=== PATIENT | female | born 1965 | race Caucasian/White ===

== ENCOUNTER 2016-10-01 11:55 | Emergency (ER) | payer OTHER ==
--- NOTE | 2016-10-01 13:18 | RAD ---
INDICATION: Head injury. COMPARISON: Comparison is made with a prior CT of the brain from February 03, 2010. TECHNIQUE: Contiguous axial sections of the brain were obtained from the skull base to the vertex without contrast. FINDINGS: The ventricles, cisterns and sulci are within normal limits. No significant focal abnormality or mass effect is seen. There is no evidence for hemorrhage. No significant focal osseous abnormality is seen. The visualized portion of the paranasal sinuses and mastoid air cells appear clear. IMPRESSION: NO EVIDENCE FOR ACUTE INTRACRANIAL ABNORMALITY.
[2016-10-01] MEDS ORDERED: Acetaminophen TAB* 325 MG PO ONE (13:24)
--- NOTE | 2016-10-01 13:37 | ED ---
Head Injury - HPI Summary HPI Summary: Patient is an otherwise healthy 51yo F who presents to ED 4 days after right sided temporal head injury. She states she stood up and hit the side of the head on a ceiling beam and had LOC. She notes to some memory loss, confusion and feeling "foggy" after the incident. The "foggy" feeling has continued and the pain in the right temporal region remains and she is concerned over a skull fracture and/or brain bleed. She denies previous concussions or head injuries. She took an Ibuprofen immediately after the incident which improved the head pain and headache. Since then, she has been taking Tylenol for relief. She denies N/V or other symptoms. She denies medication use, alcohol or drug use. - History Of Current Complaint Chief Complaint: EDHeadInjury Stated Complaint: HIT HEAD/SYNCOPE Time Seen by Provider: 10/01/16 12:07 Hx Obtained From: Patient Hx Last Menstrual Period: now? Mechanism Of Injury: Blunt Trauma Onset/Duration: Started Days Ago Onset of Pain: Immediate Severity Currently: Moderate Severity Initially: Moderate Pain Intensity: 3 Pain Scale Used: 0-10 Numeric Location of Head Injury: Temporal Location: Discrete At: - temporal region on rt side Alleviating Factor(s): Rest, Ice Associated Signs And Symptoms: LOC (Time In Secs./Mins/Hrs) - seconds to minutes - unknown, Confusion, Memory Loss, Headache - Risk Factors SDH Risk Factor: Recent Trauma - Allergies/Home Medications Allergies/Adverse Reactions: Allergies Allergy/AdvReac Type Severity Reaction Status Date / Time Meperidine [From Demerol HCl] Allergy Swelling Verified 10/01/16 11:59 Morphine Allergy SEIZURE Verified 10/01/16 11:59 PMH/Surg Hx/FS Hx/Imm Hx Previously Healthy: Yes Endocrine/Hematology History: Denies: Hx Diabetes, Hx Thyroid Disease Cardiovascular History: Reports: Other Cardiovascular Problems/Disorders - CHEST SURGERY-91-[id number] LEFT, NO PROBLEMS SINCE Denies: Hx Hypertension Respiratory History: Denies: Hx Asthma, Hx Chronic Obstructive Pulmonary Disease (COPD) GI History: Denies: Hx Ulcer - Cancer History Hx Chemotherapy: No Hx Radiation Therapy: No - Surgical History Surgery Procedure, Year, and Place: lung surgery early - pneumo - Immunization History Hx Pertussis Vaccination: No Immunizations Up to Date: No Infectious Disease History: No Infectious Disease History: Denies: Hx Hepatitis, Hx Human Immunodeficiency Virus (HIV), Traveled Outside the [place] in Last 30 Days - Social History Occupation: Employed Full-time Lives: With Family Alcohol Use: None Hx Substance Use: No Substance Use Type: Reports: None Hx Tobacco Use: No Smoking Status (MU): Never Smoked Tobacco Do You Chew or Dip Tobacco: No Have You Chewed or Dipped Tobacco in the LAST YEAR: No Review of Systems Positive: Other - right sided head pain Eyes: Negative Cardiovascular: Negative Respiratory: Negative Gastrointestinal: Negative Positive: no symptoms reported, see HPI Musculoskeletal: Negative Positive: Headache Psychological: Normal All Other Systems Reviewed And Are Negative: Yes Physical Exam Triage Information Reviewed: Yes Vital Signs On Initial Exam: Initial Vitals Temp 98.3 F 10/01/16 11:56 Vital Signs Reviewed: Yes Appearance: Positive: Well-Appearing, No Pain Distress, Well-Nourished Skin: Positive: Warm, Skin Color Reflects Adequate Perfusion Head/Face: Positive: Other - small hematom over right parietal area without ecchymosis or lesion Eyes: Positive: EOMI, NICOLLE, Conjunctiva Clear Neck: Positive: Supple, No Lymphadenopathy Respiratory/Lung Sounds: Positive: Clear to Auscultation, Breath Sounds Present Cardiovascular: Positive: Normal, RRR, Pulses are Symmetrical in both Upper and Lower Extremities Musculoskeletal: Positive: Normal, Strength/ROM Intact Neurological: Positive: Normal, Sensory/Motor Intact, Alert, Oriented to Person Place, Time, CN Intact II-III, Reflexes Intact, Speech Normal Psychiatric: Positive: Normal AVPU Assessment: Alert - Zainab Coma Scale Coma Scale Total: 15 Diagnostics - Vital Signs Vital Signs Temp Pulse Resp BP Pulse Ox 10/01/16 11:57 98.3 F 88 17 129/98 100 10/01/16 11:56 98.3 F - Laboratory Lab Statement: Any lab studies that have been ordered have been reviewed, and results considered in the medical decision making process. Head Injury Course/Dx Course Of Treatment: Patient sent to CT. CT brain negative for acute findings. Recommended brain rest with minimal reading, writing, TV, computer, etc. Patient will follow up with PCP. Paient is otherwise healthy and takes no medications. There is no concern at this point for a brain bleed, but will treat for concussive symptoms. Patient is OK and ready for DC. 650mg Tylenol given prior to DC. - Diagnoses Differential Diagnosis/HQI/PQRI: Concussion With LOC, Concussion Without LOC, Hematoma Provider Diagnoses: Concussion Discharge - Discharge Plan Condition: Stable Disposition: HOME Patient Education Materials: Concussion (ED), Post Concussion Syndrome (ED) Referrals: Jesús Bernal MD [Primary Care Provider] - Additional Instructions: Follow up with your PCP as needed. Brain rest for at least 4-6 days, if you are still feeling headaches, pains or confusion, prolong the brain rest and go see your PCP right away. Tylenol 650mg three times daily for pain and discomfort. Slowly work your way back into staring at computers, writing, reading, etc.
[2016-10-01 13:39] VITALS: BP 116/74
== END 2016-10-01 13:37 | disposition home or self-care (01) ==
LOC: ED 11:55
DX: S06.0X1A Concussion with loss of consciousness of 30 minutes or less, initial encounter (principal); W22.8XXA Striking against or struck by other objects, initial encounter; Y93.9 Activity, unspecified; Y92.9 Unspecified place or not applicable; R41.0 Disorientation, unspecified
CPT/HCPCS: 70450; 99282; A9270-GY

== ENCOUNTER 2017-10-31 21:02 | Emergency (ER) | payer OTHER ==
[2017-10-31 21:18] VITALS: BP 144/76
== END 2017-10-31 22:18 | disposition left against medical advice (07) ==
LOC: ED 21:02
DX: T14.8XXA Other injury of unspecified body region, initial encounter (principal); W57.XXXA Bitten or stung by nonvenomous insect and other nonvenomous arthropods, initial encounter; Z53.21 Procedure and treatment not carried out due to patient leaving prior to being seen by health care provider

== ENCOUNTER 2017-11-02 12:18 | Emergency (ER) | payer OTHER ==
[2017-11-02 13:28] VITALS: BP 119/79
--- NOTE | 2017-11-02 13:35 | ED ---
Skin Complaint - HPI Summary HPI Summary: Patient here with tick bite to right lower back on she removed the tick on Friday however does not feel she got the entire body out of her skin. No EM rash and she denies fever, chills, headache, chest pain, sweats. She is concerned that she could have Lyme disease she's been experiencing bilateral hand pain and stiffness and has had multiple tick bites since the end of July of this year. Unsure of last tetanus vaccine - would like to boost today. Would also like Lyme testing here today - she understands this is not to diagnose her current bite but rather the bites from July and her current hand joint pain/stiffness. Has had RA w/u through PCP which was neg. - History of Current Complaint Chief Complaint: UCSkin Time Seen by Provider: 11/02/17 13:34 Stated Complaint: TICK BITE Hx Obtained From: Patient Hx Last Menstrual Period: now? Pain Intensity: 5 - Allergy/Home Medications Allergies/Adverse Reactions: Allergies Allergy/AdvReac Type Severity Reaction Status Date / Time meperidine [From Demerol] Allergy Swelling Verified 11/02/17 13:28 morphine Allergy See Comment Verified 11/02/17 13:28 Home Medications: Home Medications Cholecalciferol (Vitamin D3) [Vitamin D3] 1,000 unit PO 11/02/17 [History] Vitamin B Complex TAB* [B Complex-50*] 1 tab PO DAILY 11/02/17 [History Confirmed 11/02/17] PMH/Surg Hx/FS Hx/Imm Hx Previously Healthy: Yes Endocrine/Hematology History: Denies: Hx Diabetes, Hx Thyroid Disease Cardiovascular History: Reports: Other Cardiovascular Problems/Disorders - CHEST SURGERY-[id number] LEFT, NO PROBLEMS SINCE Denies: Hx Hypertension, Hx Pacemaker/ICD Respiratory History: Denies: Hx Asthma, Hx Chronic Obstructive Pulmonary Disease (COPD) GI History: Denies: Hx Ulcer Sensory History: Denies: Hx Hearing Aid Psychiatric History: Denies: Hx Panic Disorder - Cancer History Hx Chemotherapy: No Hx Radiation Therapy: No - Surgical History Surgery Procedure, Year, and Place: lung surgery early - pneumo THORACOTOMY W/ INTERNAL [place] - Immunization History Immunizations Up to Date: Unable to Obtain/Confirm Infectious Disease History: No Infectious Disease History: Denies: Hx Hepatitis, Hx Human Immunodeficiency Virus (HIV), Traveled Outside the [place] in Last 30 Days - Social History Alcohol Use: Weekly Hx Substance Use: No Substance Use Type: Reports: None Hx Tobacco Use: No Smoking Status (MU): Never Smoked Tobacco Review of Systems Constitutional: Negative Negative: Fever, Chills, Fatigue Cardiovascular: Negative Respiratory: Negative Gastrointestinal: Negative Positive: no symptoms reported Positive: Arthralgia - B/L hands Skin: Other - tick bite wound area Negative: Headache, Weakness, Paresthesia, Numbness Psychological: Normal All Other Systems Reviewed And Are Negative: Yes Physical Exam Triage Information Reviewed: Yes Vital Signs On Initial Exam: Initial Vitals Temp Pulse Resp BP Pulse Ox 99.3 F 61 18 119/79 100 11/02/17 13:24 11/02/17 13:24 11/02/17 13:24 11/02/17 13:24 11/02/17 13:24 Vital Signs Reviewed: Yes Appearance: Positive: Well-Appearing, No Pain Distress, Well-Nourished Skin: Positive: Warm, Skin Color Reflects Adequate Perfusion, Dry - small red ring around bite site on Rt lower back (just above SI joint). She also appears to have a small black piece of insect particle embedded in her tissue here. No EM rash. Head/Face: Positive: Normal Head/Face Inspection Eyes: Positive: Normal, EOMI ENT: Positive: Hearing grossly normal Neck: Positive: Supple Respiratory/Lung Sounds: Positive: Breath Sounds Present Cardiovascular: Positive: Normal Musculoskeletal: Positive: Normal, Strength/ROM Intact Neurological: Positive: Normal, Sensory/Motor Intact, Alert, Oriented to Person Place, Time, CN Intact II-III Psychiatric: Positive: Normal Diagnostics - Vital Signs Vital Signs Temp Pulse Resp BP Pulse Ox 11/02/17 13:24 99.3 F 61 18 119/79 100 - Laboratory Lab Statement: Any lab studies that have been ordered have been reviewed, and results considered in the medical decision making process. Course/Dx - Diagnoses Provider Diagnoses: Tick bite of back, Arthralgia of hands, bilateral Discharge - Sign-Out/Discharge Documenting (check all that apply): Discharge/Admit/Transfer - Discharge Plan Condition: Stable Disposition: HOME Patient Education Materials: Tick Bite (ED), Arthralgia (ED), Diphtheria/ Acellular Pertussis/Tetanus Booster Vaccine (By injection) Referrals: Kelley Blanton MD [Primary Care Provider] - Additional Instructions: The tick bite you attained on will be treated today with a prophylactic dose of doxycycline 200 mg. Please note however this may not prevent advancement of Lyme disease. It is important that you continue to monitor for signs and symptoms of Lyme disease including an erythema migrans AKA "bull's-eye rash" over the next month. After that, you can develop joint aches, headache, chest pain, palpitations, numbness, tingling, weakness, shortness of breath or dizziness. If any of these symptoms present, return to your PCP for further testing or go to the ED. Please note the Lyme test drawn here today will not be available for another week or so. If you do not receive a call from our staff providing you with results, please call to attain said results. - Billing Disposition and Condition Condition: STABLE Disposition: HOME
[2017-11-02] MEDS ORDERED: DOXYcycline CAP(*) 100 MG PO ONE (13:52)
[2017-11-02] MEDS ORDERED: Tetan/Diph/Pertus SYR(Tdap)* 0.5 ML SYR(BOOSTRIX) use SYR IM ONE (13:54)
== END 2017-11-02 14:20 | disposition home or self-care (01) ==
LOC: UCEAST 12:18
DX: S30.860A Insect bite (nonvenomous) of lower back and pelvis, initial encounter (principal); W57.XXXA Bitten or stung by nonvenomous insect and other nonvenomous arthropods, initial encounter; Y93.9 Activity, unspecified; Y92.9 Unspecified place or not applicable; M25.542 Pain in joints of left hand; M25.541 Pain in joints of right hand; Z23 Encounter for immunization; I25.10 Atherosclerotic heart disease of native coronary artery without angina pectoris; Z88.5 Allergy status to narcotic agent
CPT/HCPCS: 86617; 90471; 90715; 99212; A9270-GY; G0463

== ENCOUNTER 2019-08-14 15:22 | Emergency (ER) | payer OTHER ==
[2019-08-14 19:56] VITALS: BP 131/82
--- NOTE | 2019-08-14 20:45 | UC ---
FLU HPI - HPI Summary HPI Summary: subjective fever, cough, ear ache back pain diarrhea began yesterday - History of Current Complaint Chief Complaint: UCGeneralIllness Stated Complaint: FEVER/COUGH Time Seen by Provider: 08/14/19 20:21 Hx Obtained From: Patient Hx Last Menstrual Period: post menopause ?: No Onset/Duration: Sudden Onset, Lasting Days - 2 Pain Intensity: 4 Pain Scale Used: 0-10 Numeric Associated Signs & Symptoms: Positive: Fever - subjective, Myalgia, Cough, Sore Throat, Diarrhea Related Hx: Possible Flu/Infectious Exposure - Allergy/Home Medications Allergies/Adverse Reactions: Allergies Allergy/AdvReac Type Severity Reaction Status Date / Time meperidine [From Demerol] Allergy Swelling Verified 08/14/19 19:58 morphine Allergy See Comment Verified 08/14/19 19:58 Home Medications: Home Medications ALPRAZolam TAB* [Xanax TAB*] 0.5 mg PO DAILY PRN 04/04/13 [History Confirmed 10/18] Meloxicam 7.5 mg PO BID PRN 12/04/18 [History Confirmed 12/04/18] Polyethylene Glycol 3350* [Miralax*] 17 gm PO DAILY PRN 12/04/18 [History Confirmed 12/04/18] PMH/Surg Hx/FS Hx/Imm Hx Previously Healthy: No Psychological History: Anxiety - Surgical History Surgical History: Yes Surgery Procedure, Year, and Place: lung surgery early - pneumo THORACOTOMY W/ INTERNAL [place] - Family History Known Family History: Positive: None - Social History Occupation: Employed Full-time Lives: With Family Alcohol Use: Weekly Substance Use Type: None Smoking Status (MU): Never Smoked Tobacco - Immunization History Most Recent Tetanus Shot: unknown Review of Systems All Other Systems Reviewed And Are Negative: Yes Constitutional: Positive: Fever, Fatigue Skin: Positive: Negative Eyes: Positive: Negative ENT: Positive: Sore Throat Respiratory: Positive: Cough Cardiovascular: Positive: Negative Gastrointestinal: Positive: Negative Genitourinary: Positive: Negative Motor: Positive: Negative Neurovascular: Positive: Negative Musculoskeletal: Positive: Negative Neurological/Mental Status: Positive: Negative Psychological: Positive: Negative Is Patient Immunocompromised?: No Physical Exam Triage Information Reviewed: Yes Appearance: Well-Appearing, No Pain Distress, Well-Nourished Vital Signs: Initial Vital Signs Temp 98.1 F 08/14/19 19:48 Pulse 84 08/14/19 19:48 Resp 16 08/14/19 19:48 BP 131/82 08/14/19 19:48 Pulse Ox 99 08/14/19 19:48 Vital Signs Reviewed: Yes Eye Exam: Normal Eyes: Positive: Conjunctiva Clear ENT Exam: Normal ENT: Positive: Normal ENT inspection, Hearing grossly normal, Pharynx normal, TMs normal, Uvula midline. Negative: Nasal congestion, Tonsillar swelling, Trismus, Muffled voice, Hoarse voice, Sinus tenderness Dental Exam: Normal Neck exam: Normal Neck: Positive: Supple, Nontender, No Lymphadenopathy Respiratory Exam: Normal Respiratory: Positive: Chest non-tender, Lungs clear, Normal breath sounds, No respiratory distress, No accessory muscle use Cardiovascular Exam: Normal Cardiovascular: Positive: RRR, No Murmur, Pulses Normal, Brisk Capillary Refill Musculoskeletal Exam: Normal Musculoskeletal: Positive: Strength Intact, ROM Intact, No Edema Neurological Exam: Normal Neurological: Positive: Alert, Muscle Tone Normal Psychological Exam: Normal Skin Exam: Normal Diagnostics - Laboratory Lab Results: rst -. influenza a/b - Flu Course/Dx - Course Course Of Treatment: strict home self isolation pending results of testing follow with pcp prn - Differential Dx/Diagnosis Provider Diagnosis: Acute viral syndrome Discharge ED - Sign-Out/Discharge Documenting (check all that apply): Patient Departure All imaging exams completed and their final reports reviewed: No Studies - Discharge Plan Condition: Stable Disposition: HOME Patient Education Materials: Viral Syndrome (ED) Referrals: Kelley Blanton MD [Primary Care Provider] - 3 Days Additional Instructions: Strict Self Isolation The [facility] will be in contact with you for follow up, further instruction, and test results - Billing Disposition and Condition Condition: STABLE Disposition: Home
[2019-08-14 20:56] LABS: Influenza A Molecular Negative (Negative); Influenza B Molecular Negative (Negative)
== END 2019-08-14 21:38 | disposition home or self-care (01) ==
LOC: UCEAST 15:22
DX: B34.9 Viral infection, unspecified (principal); F41.9 Anxiety disorder, unspecified; Z88.5 Allergy status to narcotic agent
CPT/HCPCS: 87651; 99212; G0463